=== PATIENT | female | born 1950 | race Caucasian/White ===

== ENCOUNTER 2017-07-31 14:23 | Emergency (ER) | payer MEDICARE ==
[~2017-07-31] VITALS: Ht 149.9 cm; Wt 72.6 kg
[2017-07-31 14:38] VITALS: BP_SYST 155
[2017-07-31 16:41] VITALS: BP_SYST 155
== END 2017-07-31 16:41 | disposition home or self-care (01) ==
LOC: SED 14:23
DX: L30.4 Erythema intertrigo (principal)
CPT/HCPCS: 99283

== ENCOUNTER 2017-08-01 14:42 | Emergency (ER) | payer MEDICARE ==
[~2017-08-01] VITALS: Ht 149.9 cm; Wt 72.6 kg
[2017-08-01 14:45] VITALS: BP_SYST 147
[2017-08-01 16:35] VITALS: BP_SYST 132
== END 2017-08-01 16:32 | disposition home or self-care (01) ==
LOC: SED 14:42
DX: L30.4 Erythema intertrigo (principal); R03.0 Elevated blood-pressure reading, without diagnosis of hypertension
CPT/HCPCS: 36415; 83735-TC; 99283

== ENCOUNTER 2018-11-03 17:28 | Emergency (ER) | payer MEDICARE ==
[~2018-11-03] VITALS: Ht 149.9 cm; Wt 78.0 kg
[2018-11-03 17:44] VITALS: BP_SYST 166
--- NOTE | 2018-11-03 17:50 | NUR ---
Patient triaged and placed in waiting room. VSS and patient appears in no acute distress at this time. Accompanied by SELF, awaiting available bed, and MD notified of need for MSE.
--- NOTE | 2018-11-03 17:52 | NUR ---
Patient to ER bed 04 to gown for evaluation. Side rails up.
--- NOTE | 2018-11-03 17:55 | NUR ---
Note claudekyle in ED - 11/03/18 at 1909 by SUSAN Patient arrive to the ER ambulating c/o pain to left arm x2 weeks, patient noticed a bumpmtoday to inside of left elbow. Patient A&O x4, VS stable, respirations equal and unlabored, afebrile.
--- NOTE | 2018-11-03 18:25 | NUR ---
Patient arrive to the ER ambulating c/o pain to right arm x2 weeks, patient noticed a bumpmtoday to inside of left elbow. Patient A&O x4, VS stable, respirations equal and unlabored, afebrile.
--- NOTE | 2018-11-03 18:25 | NUR ---
founder and chief technical officer at bedside
--- NOTE | 2018-11-03 19:07 | NUR ---
Report given to Kobi SHUKLA
[2018-11-03] MEDS ORDERED: cloNIDine HCL 0.1 MG TABLET PO ONE (19:30)
[2018-11-03] MEDS ORDERED: PREDNISONE 20 MG TABLET PO ONE (19:30)
--- NOTE | 2018-11-03 19:30 | NUR ---
TRICIA Langley at bedside examining patient.
--- NOTE | 2018-11-03 19:42 | NUR ---
Patient given written and verbal discharge instructions and verbalizes understanding. ER MD discussed with patient the results and treatment provided. Patient in stable condition. ID arm band removed. Rx of Predinsone and Hydralazine given. Patient educated on pain management and to follow up with PMD. Pain Scale 0/10 .Opportunity for questions provided and answered. Medication side effect fact sheet provided.
[2018-11-03 19:43] VITALS: BP_SYST 195
== END 2018-11-03 17:42 | disposition home or self-care (01) ==
LOC: SED 17:28
DX: M70.21 Olecranon bursitis, right elbow (principal); M19.90 Unspecified osteoarthritis, unspecified site; R03.0 Elevated blood-pressure reading, without diagnosis of hypertension
CPT/HCPCS: 93971; 99284; J7512

== ENCOUNTER 2020-03-07 08:48 | Observation (INO) | payer OTHER ==
[~2020-03-07] VITALS: Ht 149.9 cm; Wt 72.6 kg
[2020-03-07 08:48] VITALS: BP_SYST 171
[2020-03-07] MEDS ORDERED: ASPIRIN 81 MG TAB.CHEW PO ONE (09:30)
[2020-03-07] MEDS ORDERED: KETOROLAC TROMETHAMINE 30 MG VIAL IVP ONE (09:30)
[2020-03-07] MEDS ORDERED: NITROGLYCERIN 1 INCH (GM) OINT. TD ONE (09:30)
[2020-03-07 09:34] LABS: BASOPHILS # (AUTO) 0.1 K/uL (0.0-0.2); BASOPHILS % (AUTO) 1.2 % (0.0-2.0); EOSINOPHILS # (AUTO) 0.2 K/uL (0.0-0.4); EOSINOPHILS % (AUTO) 3.8 % (0.0-4.0); HEMOGLOBIN 13.9 g/dL (12.0-16.0); LYMPHOCYTES # (AUTO) 1.4 K/uL (1.0-5.5); LYMPHOCYTES % (AUTO) 25.2 % (20.5-51.5); MEAN CORPUSCULAR HEMOGLOBIN 30 pg (27-31); MEAN CORPUSCULAR HGB CONC 33 % (32-36); MEAN CORPUSCULAR VOLUME 89 fL (79.0-98.0); MONOCYTES # (AUTO) 0.5 K/uL (0.0-1.0); NEUTROPHILS # (AUTO) 3.5 K/uL (1.8-7.7); NEUTROPHILS % (AUTO) 60.8 % (40.0-70.0); PLATELET COUNT (AUTO) 325 K/uL (130-430); RED BLOOD CELL COUNT(AUTO) 4.72 MIL/uL (4.2-6.2); WHITE BLOOD COUNT (AUTO) 5.8 K/uL (4.8-10.8)
[2020-03-07 09:45] LABS: CALCIUM 8.3 mg/dL (8.4-11.0); CREATININE 0.75 mg/dL (0.55-1.30); POTASSIUM 4.1 mmol/L (3.5-5.1)
[2020-03-07 09:53] LABS: TOTAL BILIRUBIN 0.3 mg/dL (0.0-1.0)
[2020-03-07 09:54] LABS: ALBUMIN 3.2 g/dL (3.4-4.8)
[2020-03-07] MEDS ORDERED: MELO15TA13 PO (10:33)
[2020-03-07] MEDS ORDERED: HYDR-4038 PO (10:33)
[2020-03-07] MEDS ORDERED: MORPHINE 4 MG/ML INJ. SYRINGE IVP PRN (11:45)
[2020-03-07] MEDS ORDERED: METOCLOPRAMIDE HCL 10 MG/2 ML VIAL IVP PRN (11:45)
[2020-03-07] MEDS ORDERED: ACETAMINOPHEN 325 MG TABLET PO PRN (11:45)
[2020-03-07] MEDS ORDERED: MORPHINE 2 MG/ML INJ. SYRINGE IVP PRN (11:45)
[2020-03-07] MEDS ORDERED: ONDANSETRON HCL 4 MG/2 ML VIAL IVP PRN (11:45)
[2020-03-07 12:10] VITALS: BP_SYST 127
[2020-03-07] MEDS: hydrALAZINE HCL 25 MG TABLET PO ONE ×2 (12:24→12:28)
[2020-03-07 17:06] VITALS: BP_SYST 112
[2020-03-07 19:33] VITALS: BP_SYST 146
[2020-03-08 01:12] VITALS: BP_SYST 135
[2020-03-08 08:09] VITALS: BP_SYST 130
[2020-03-08] MEDS ORDERED: hydrALAZINE HCL 25 MG TABLET PO SCH (09:00)
[2020-03-08] MEDS ORDERED: MELOXICAM 7.5 MG TABLET PO SCH (09:00)
[2020-03-08 11:00] VITALS: BP_SYST 129
[2020-03-08 12:29] VITALS: BP_SYST 129
== END 2020-03-08 12:40 | disposition home or self-care (01) ==
LOC: SED 08:48 → INTOOBSV 10:44 → STU 10:44
PROVIDERS: ADMIT Internal Medicine Hospice and Palliative Medicine; ATTEND Internal Medicine Hospice and Palliative Medicine
DX: R07.89 Other chest pain (principal); I10 Essential (primary) hypertension; E78.5 Hyperlipidemia, unspecified; E66.9 Obesity, unspecified; M19.90 Unspecified osteoarthritis, unspecified site; F41.9 Anxiety disorder, unspecified; Z96.612 Presence of left artificial shoulder joint; Z79.1 Long term (current) use of non-steroidal anti-inflammatories (NSAID); Z79.899 Other long term (current) drug therapy
CPT/HCPCS: 36415; 71045; 80053; 82550; 83880; 84484 ×2; 85025; 85379; 93005 ×2; 93306; 96374; 99291; G0378 ×2; J1885

== ENCOUNTER 2023-10-23 11:45 | Emergency (ER) | payer OTHER ==
[~2023-10-23] VITALS: Ht 149.9 cm; Wt 74.8 kg
[~2023-10-23 11:45] MED LIST: HYDR-4038 PO; MELO15TA13 PO
[2023-10-23 12:01] VITALS: BP_SYST 154; BP_SYST 209; PULSE 80; RESP 18; TEMP 97.8; O2SAT 96
[2023-10-23 12:42] LABS: BILIRUBIN,URINE NEGATIVE (NEGATIVE); BLOOD, URINE NEGATIVE (NEGATIVE); CLARITY/URINE CLEAR (CLEAR); COLOR,URINE YELLOW (YELLOW); GLUCOSE,URINE NEGATIVE (NEGATIVE); KETONES,URINE NEGATIVE (NEGATIVE); LEUKOCYTE ESTERASE ,URINE TRACE (NEGATIVE); NITRITE, URINE NEGATIVE (NEGATIVE); PH,URINE 6.5 (5.0-8.0); PROTEIN URINE NEGATIVE (NEGATIVE); UROBILINOGEN,URINE 0.2 (0.2-1.0)
[2023-10-23 12:48] LABS: BACTERIA,URINE None Seen /HPF (None Seen); CALCIUM OXALATE CRYSTALS,UR None Seen /HPF (None Seen); CALCIUM PHOSPHATE CRYSTALS,UR None Seen /HPF (None Seen); COARSE GRANULAR CASTS,URINE None Seen /LPF (None Seen); FINE GRANULAR CASTS,URINE None Seen /LPF (None Seen); HYALINE CASTS, URINE None Seen /LPF (None Seen); MUCUS,URINE None Seen /LPF (None Seen); OTHER CASTS, URINE None Seen /LPF (None Seen); OTHER CRYSTALS,URINE None Seen /HPF (None Seen); RBC,URINE 0-3 /HPF (0-3); TRICHOMONAS,URINE None Seen /HPF (None Seen); TRIPLE PHOSPHATE CRYSTAL,UR None Seen /HPF (None Seen); URIC ACID CRYSTALS,URINE None Seen /HPF (None Seen); URINE AMORPHOUS PHOSPHATES None Seen /HPF (None Seen); URINE AMORPHOUS URATE None Seen /HPF (None Seen); WAXY CASTS,URINE None Seen /LPF (None Seen); WBC,URINE NONE SEEN /HPF (0-3); YEAST,URINE None Seen /HPF (None Seen)
[2023-10-23 12:55] LABS: BASOPHILS # (AUTO) 0.1 K/uL (0.0-0.2); EOSINOPHILS # (AUTO) 0.1 K/uL (0.0-0.4); HEMATOCRIT 44.8 % (36-48); LYMPHOCYTES # (AUTO) 1.6 K/uL (1.0-5.5); MEAN CORPUSCULAR HEMOGLOBIN 29 pg (27-31); MEAN CORPUSCULAR HGB CONC 33 % (32-36); MEAN CORPUSCULAR VOLUME 88 fL (79.0-98.0); MONOCYTES # (AUTO) 0.5 K/uL (0.0-1.0); MONOCYTES % (AUTO) 7.3 % (1.7-9.3); NEUTROPHILS # (AUTO) 4.7 K/uL (1.8-7.7); NEUTROPHILS % (AUTO) 66.7 % (40.0-70.0); PLATELET COUNT (AUTO) 399 K/uL (130-430); RED BLOOD CELL COUNT(AUTO) 5.09 MIL/uL (4.2-6.2); RED CELL DISTRIBUTION WIDTH 14.7 % (9.0-15.0); WHITE BLOOD COUNT (AUTO) 7.1 K/uL (4.8-10.8)
[2023-10-23 12:56] LABS: ANION GAP 9 (5-15); CARBON DIOXIDE 27 mmol/L (23-29); CHLORIDE 104 mmol/L (98-107); CREATININE 0.65 mg/dL (0.55-1.30); GLUCOSE 102 mg/dL (74-106); POTASSIUM 4.4 mmol/L (3.5-5.1); SODIUM SERUM 140 mmol/L (136-145); UREA NITROGEN, BLOOD 12 mg/dL (8-21)
[2023-10-23 13:10] LABS: ALANINE AMINOTRANSFERASE 28 U/L (12-78); ALBUMIN 3.8 g/dL (3.4-4.8); AMYLASE 41 U/L (0-100); ASPARTATE AMINOTRANSFERASE 18 U/L (10-37); BILIRUBIN,DIRECT 0.1 mg/dL (0.0-0.3); LIPASE 34 U/L (16-77); TOTAL BILIRUBIN 0.5 mg/dL (0.0-1.0); TOTAL PROTEIN, SERUM 6.9 g/dL (6.4-8.3)
[2023-10-23] MEDS ORDERED: IBUPROFEN 600 MG TABLET PO ONE (13:15)
[2023-10-23] MEDS ORDERED: HYDROcodone/ACETAMIN 7.5-325 MG TAB PO ONE (13:15)
[2023-10-23] MEDS ORDERED: METR-154 PO (14:16)
[2023-10-23] MEDS ORDERED: CIPR500T5 PO (14:16)
[2023-10-23 14:29] VITALS: BP_SYST 154; PULSE 80; RESP 18; TEMP 97.8; O2SAT 96
== END 2023-10-23 14:29 | disposition home or self-care (01) ==
LOC: SED 11:45
DX: K29.80 Duodenitis without bleeding (principal); R10.9 Unspecified abdominal pain; I10 Essential (primary) hypertension; Z79.899 Other long term (current) drug therapy
CPT/HCPCS: 36415; 76376; 80048; 80076; 81000; 81001; 81003; 81015; 82150; 83605; 83690; 85025; 99284